=== PATIENT | male | born 1940 | race Caucasian/White ===

== ENCOUNTER 2021-12-28 18:55 | Emergency (ER) | payer MEDICARE ==
[2021-12-28 19:52] VITALS: PULSE 65; RESP 22; TEMP 97.8
--- NOTE | 2021-12-28 19:55 | ED ---
General Adult HPI - General Chief complaint: Upper Respiratory Infection Stated complaint: COVID+/Antibodies Time Seen by Provider: 12/28/21 19:24 Source: patient, family, RN notes reviewed, old records reviewed Mode of arrival: ambulatory Limitations: no limitations - History of Present Illness Initial comments: 81-year-old male presenting with coronavirus. Patient states he's had cough and cold symptoms for the past several days. He tested positive yesterday. He is requesting multiple antibodies. No chest pain or dyspnea. - Related Data Allergies Allergy/AdvReac Type Severity Reaction Status Date / Time No Known Allergies Allergy Verified 12/28/21 19:52 Review of Systems ROS Statement: Those systems with pertinent positive or pertinent negative responses have been documented in the HPI. ROS Other: All systems not noted in ROS Statement are negative. Past Medical History Past Medical History: Hypertension History of Any Multi-Drug Resistant Organisms: None Reported Past Surgical History: No Surgical Hx Reported Past Psychological History: No Psychological Hx Reported Smoking Status: Never smoker Past Alcohol Use History: Occasional Past Drug Use History: None Reported General Exam Limitations: no limitations General appearance: alert, in no apparent distress Head exam: Present: atraumatic, normocephalic Eye exam: Present: normal appearance, PERRL ENT exam: Present: normal exam Neck exam: Present: normal inspection. Absent: tenderness, meningismus Respiratory exam: Present: normal lung sounds bilaterally. Absent: respiratory distress, wheezes Cardiovascular Exam: Present: regular rate, normal rhythm GI/Abdominal exam: Present: soft. Absent: distended, tenderness, guarding Extremities exam: Present: normal inspection, normal capillary refill Neurological exam: Present: alert, oriented X3, CN II-XII intact. Absent: motor sensory deficit Psychiatric exam: Present: normal affect, normal mood Skin exam: Present: warm, dry, intact. Absent: cyanosis, diaphoretic Course Vital Signs 12/28/21 19:49 Temperature 97.8 F Pulse Rate 65 Respiratory 22 Rate O2 Sat by Pulse 97 Oximetry Medical Decision Making - Medical Decision Making 81-year-old male with home test for coronavirus. Symptoms for the past several days. Patient well-appearing with no dyspnea, no hypoxia. He does meet for monoclonal antibody transfusion. These are administered in the emergency department. The patient is instructed to return with worsening or changing symptoms, take vitamin C, zinc, vitamin D. Disposition Clinical Impression: COVID-19 Disposition: HOME SELF-CARE Condition: Fair Instructions (If sedation given, give patient instructions): COVID-19 (Coronavirus Disease 2019) (ED) Is patient prescribed a controlled substance at d/c from ED?: No Referrals: Nonstaff,Physician [Primary Care Provider] - 1-2 days Time of Disposition: 21:00
[2021-12-28] MEDS ORDERED: BEBTELOVIMAB (EUA) 175 MG/2 ML VIAL IV ONE (21:30)
== END 2021-12-28 22:58 | disposition home or self-care (01) ==
LOC: EC 18:55
DX: U07.1 COVID-19 (principal); I10 Essential (primary) hypertension
CPT/HCPCS: 99283 ×2; Q0222